=== PATIENT | female | born 1995 | race Two or more races ===

== ENCOUNTER 2025-05-30 13:41 | Emergency (ER) | payer MEDICAID, SELFPAY ==
[2025-05-30 09:54] VITALS: BP 128/75; PULSE 78
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
[2025-05-30 10:11] VITALS: BP 128/75; PULSE 79; RESP 100; RESP 16; TEMP 36.8; BMI 35.0
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
[2025-05-30 14:36] VITALS: BP 132/69; PULSE 79; RESP 18; TEMP 36.9; O2SAT 100
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
== END 2025-05-30 16:04 | disposition other institution (70) ==
LOC: SERX 14:56
PROVIDERS: Emergency Provider Emergency Medicine; PCP Nurse Practitioner Women's Health
DX: O26.892 Other specified pregnancy related conditions, second trimester (principal); V89.2XXA Person injured in unspecified motor-vehicle accident, traffic, initial encounter; Y92.410 Unspecified street and highway as the place of occurrence of the external cause; Z3A.22 22 weeks gestation of pregnancy; R10.32 Left lower quadrant pain; M54.9 Dorsalgia, unspecified
CPT/HCPCS: 76805; 99283

== ENCOUNTER 2025-08-07 08:42 | Observation (INO) | payer MEDICAID, SELFPAY ==
[2025-08-07] VITALS (8 sets, daily range): BP systolic 137; BP diastolic 83; PULSE 77–89; RESP 20–100; TEMP 36.8; O2SAT 99–100; BMI 37.3
== END 2025-08-07 09:42 | disposition home or self-care (01) ==
PROVIDERS: Admitting Provider Specialist; PCP Family Medicine; Visit Provider Specialist
DX: O26.893 Other specified pregnancy related conditions, third trimester (principal); R10.9 Unspecified abdominal pain; O99.613 Diseases of the digestive system complicating pregnancy, third trimester; K92.0 Hematemesis; Z3A.32 32 weeks gestation of pregnancy
CPT/HCPCS: 59025; 59899

== ENCOUNTER 2025-08-07 19:16 | Emergency (ER) | payer MEDICAID, SELFPAY ==
[2025-08-07 19:19] VITALS: BMI 36.9
[2025-08-07 20:03] VITALS: BP 130/75; PULSE 76; RESP 18; TEMP 36.8; O2SAT 100
--- NOTE | 2025-08-07 20:18 | PD.EDNV ---
Nausea/Vomit./Diarrhea-RME/HPI General Chief complaint: Abdominal Pain Stated complaint: ABD PAIN, N/V Time Seen by Provider: 08/07/25 19:25 Arrival date/time: 08/07/25 19:16 30-year-old female patient 5 para 2 2, about 32 weeks , came in for evaluation regarding vomiting. Earlier this morning patient's been vomiting, and was worried because of blood-tinged vomitus. Patient came here this morning and went to labor and delivery and was advised that the baby was okay. Patient came here because of worries about blood in the vomitus this morning. No more bloody vomitus noted in the afternoon. Patient was prescribed omeprazole by PCP. No diarrhea no constipation no vaginal bleeding or spotting. No dysuria. Related Data Home Medications ?Medication ?Instructions ?Recorded ?Confirmed prenat.vits,yolanda,[id number] 1 tab PO QDAY 03/06/21 08/07/25 aspirin 81 mg tablet,delayed 81 mg PO QDAY 05/30/25 08/07/25 release Previous Rx's ?Medication ?Instructions ?Recorded ondansetron HCl 4 mg tablet 4 mg PO Q8H PRN nausea and 08/07/25 vomiting 5 days #20 tabs Allergies Allergy/AdvReac Type Severity Reaction Status Date / Time No Known Allergies Allergy Verified 08/07/25 19:20 Review of Systems Review of Systems Narrative Review of Systems: Review of system reviewed and within normal limits except mentioned in HPI ED Exam Narrative Physical exam: VITAL SIGNS: Reviewed. GENERAL APPEARANCE: Alert and interactive, follows commands, no acute distress, HEAD AND FACE: Non-traumatic. ENT: PERRL, pink conjunctivitis, eyelid no trauma, Mucous membrane moist. NECK: Supple, nontender, no nuchal rigidity. CHEST: No tenderness, no crepitus, no paradoxical movement, no retractions. LUNGS: Clear, well ventilated, symmetric, no rales, no wheezing, no ronchi, no stridor, good breath sounds bilaterally. HEART: Regular rate, regular rhythm, no murmur, no gallops. ABDOMEN: Soft, positive bowel sounds, nondistended, no guarding, nontender, no rebound, no masses, RECTAL: Deferred. GENITAL: Deferred. NEUROLOGICAL: Gross motor function intact sensory function intact, Appropriate for age. MUSCULOSKELETAL: low back nontender, full range of motion. EXTREMITIES: Nontender, full range of motion. SKIN: Color pink, dry, no rash, no lacerations, no abrasions, no contusions. LYMPHATICS: Deferred. Course Quality Measures none Orders Category Date Time Status CBC [CBC] Stat Lab 08/07/25 20:34 Completed CMP [Comprehensive Metabolic Panel] Stat Lab 08/07/25 20:34 Completed Lipase Stat Lab 08/07/25 20:34 Completed UA, C/S IF [Urinalysis, C/S if Indicated] Stat Lab 08/07/25 20:30 Completed Ondansetron Odt [Zofran Odt] Med 08/07/25 20:17 Discontinued 4 mg PO X1 ONE Vital Signs Vital signs: Vital Signs Temperature 98.2 F 08/07/25 20:03 Pulse Rate 76 08/07/25 20:03 Respiratory Rate 18 08/07/25 20:03 Blood Pressure 130/75 08/07/25 20:03 Pulse Oximetry (%) 100 08/07/25 20:03 Oxygen Delivery Method Room Air 08/07/25 20:03 Nausea/Vomiting/Diarrhea MDM Narrative MDM Narrative:: 30-year-old female patient 5 para 2 2, about 32 weeks , came in for evaluation regarding vomiting. Earlier this morning patient's been vomiting, and was worried because of blood-tinged vomitus. Patient came here this morning and went to labor and delivery and was advised that the baby was okay. Patient came here because of worries about blood in the vomitus this morning. No more bloody vomitus noted in the afternoon. Patient was prescribed omeprazole by PCP. No diarrhea no constipation no vaginal bleeding or spotting. No dysuria. Patient CBC today came back unremarkable no anemia noted the rest of the labs normal urinalysis no UTI patient told me that there was no recurrence of blood-tinged vomitus in the ED. Patient was prescribed by her FLASH RANGING CREWMEMBER that saw her this morning with omeprazole. I sent her home on Zofran. She had no issues with her abdominal pain she had no vaginal bleeding or spotting I do not think the patient needs to go obstruction again she was seen and cleared in the labor and delivery earlier today. Patient data External records reviewed:: None Clinical information provided by:: patient Social determinants that could affect healthcare access:: none Patient has the following chronic illnesses:: None How is presenting disease/condition affected by chronic disease/condition?: no chronic disease Evaluation data The following diagnostics were reviewed and interpreted by me:: lab results Lab and/or radiology exams considered but not ordered:: None Interpretation Summary: See above Medications / Prescriptions Medications / Prescriptions considered but not ordered:: None Medication administrations:: Medication Administration History Discontinued Medications Ondansetron HCl (Ondansetron Odt 4 Mg Tabrap) 4 mg PO X1 ONE; Protocol Stop: 08/07/25 20:18 Last Admin: 08/07/25 21:19 Dose: 4 mg Documented By: MARYCARMEN Veronica Consultations Consultation(s) initiated? (list below): No Diagnosis Nausea Differential Diagnosis: gastroenteritis and dehydration Most likely diagnosis given after review of the tests above:: Nausea vomiting, Admission Indicated Admission indicated?: not indicated Admission Request Was there a request for admission?: No Disposition Plan Disposition Plan: Discharge Discharge Attestation Discharge Attestation: The patient was given an opportunity to ask questions and understood the discharge instructions. Discharge instructions specifically effects, indications for sooner follow up or return to the emergency department, and the expected course of current diagnosis. Patient condition: Stable Discharge Plan Plan Patient Disposition: HOME (Self Care) Discharge Disposition comment: Stable Prescriptions/Referrals Prescriptions/Med Rec: New ondansetron HCl 4 mg tablet 4 mg PO Q8H PRN (Reason: nausea and vomiting) 5 Days Qty: 20 0RF No Action prenat.vits,yolanda,[id number] Tablet 1 tab PO QDAY aspirin 81 mg tablet,delayed release (DR/EC) 81 mg PO QDAY Patient Comments: TAKE 1 TABLET BY MOUTH ONCE A DAY START AFTER 04/02/25 Referrals: Hector Yu MD [Primary Care Provider, Family Practice] - In 1 week Problem List Clinical Impression: Nausea & vomiting, and not yet delivered in third trimester Patient/Caregiver Discharge Instructions Discharge Activity: activity as tolerated Education Materials: ED Diet for Vomiting or ... Additional Instructions: Thank you for the opportunity for serving you today. You are stable for discharged . You are advised to: Follow-up with your FLASH RANGING CREWMEMBER in 1 to 2 days Return to ED for worsening of symptoms Increase oral fluids Take medication as prescribed Print Language: Mohawk Stand Alone Forms: Tawanna Award Info., Patient Portal Info Letter PA/DENTAL LABORATORY ASSISTANT Supervising Physician PA/DENTAL LABORATORY ASSISTANT Supervising Physician: mD Kathrin
[2025-08-07 20:42] LABS: Collection Type, Urine Clean Catch; RBC,Urine 0 /hpf (0-3)
[2025-08-07 20:56] LABS: Basophils # (Auto) 0.0 Thou/mm3 (0.0-0.2); Basophils % (Auto) 0 % (0-2.5); Eosinophils # (Auto) 0.0 Thou/mm3 (0.0-0.5); Eosinophils % (Auto) 0 % (0-10); Hematocrit 35.8 % (36.0-46.0); Hemoglobin 12.2 g/dL (12.0-16.0); Immature Granulocytes Auto 0.10 Thou/mm3 (0.00-0.00); Lymphocytes # (Auto) 1.5 Thou/mm3 (1.0-4.8); Lymphocytes % (Auto) 12 % (10-50); Mean Corpuscular HGB Conc 34.1 g/dl (31.0-37.0); Mean Corpuscular Hemoglobin 31.3 pg (25.0-35.0); Mean Corpuscular Volume 92 fL (80-100); Monocytes # (Auto) 0.9 Thou/mm3 (0.0-0.8); Monocytes % (Auto) 7 % (0-12); Neutrophils # (Auto) 10.4 Thou/mm3 (1.8-7.7); Neutrophils % (Auto) 80 % (37-80); Nucleated Red Blood Cell # 0.00 Thou/mm3 (0.00-0.00); Nucleated Red Blood Cell % 0 /100 WBC (0); Platelet Count 221 Thou/mm3 (140-440); RDW Standard Deviation 42.3 fL (36.4-46.3); Red Blood Count 3.90 Miln/mm3 (4.00-5.20); White Blood Count 13.0 Thou/mm3 (3.6-11.0)
[2025-08-07 21:01] LABS: Bacteria,Urine Rare; Bilirubin,Urine Negative (Negative); Blood,Urine Negative (Negative); Clarity,Urine Clear (Clear/Hazy); Color,Urine Lt-Yellow (Lt Yel-Yel); Culture Indicated,Urine Not Indicated; Glucose, Urine Negative (Negative); Ketones,Urine Negative (Negative); Leukocyte Esterase,Urine Negative (Negative); Nitrite,Urine Negative (Negative); PH,Urine 7.0 (5.0-7.0); Protein,Urine Negative (Neg - Trace); Specific Gravity,Urine 1.007 (1.001-1.035); Squamous Epithelial Cell,Urine 1 /hpf (0-5); Urobilinogen,Urine Negative mg/dL (0.0-1.0); WBC,Urine < 1 /hpf (0-5)
[2025-08-07 21:14] LABS: Alanine Aminotransferase 9 U/L (10-49); Albumin, Serum 4.2 gm/dL (3.5-5.0); Albumin/Globulin Ratio 1.3 (1.2-2.2); Alkaline Phosphatase 85 U/L (46-116); Anion Gap 11 (7-16); Aspartate Amino Transferase 20 U/L (0-34); BUN/Creatinine Ratio 8 Ratio (12-20); Bilirubin,Total 0.3 mg/dL (0.3-1.2); Blood Urea Nitrogen < 5 mg/dL (9-23); Calcium 8.9 mg/dL (8.3-10.6); Calcium (Corrected) 8.9 mg/dL (8.5-10.1); Carbon Dioxide 22.7 mMol/L (20.0-31.0); Chloride 107 mMol/L (98-107); Creatinine (Component) 0.6 mg/dL (0.6-1.3); Estimated Creatinine Clearance 185.8 mL/min (>60); Globulin 3.2 gm/dL (2.3-3.5); Glucose 90 mg/dL (74-106); Lipase 31 U/L (12-53); Osmolality,Calculated 278 (275-295); Potassium 4.1 mMol/L (3.4-5.1); Sodium 141 mMol/L (136-145); Total Protein 7.4 gm/dL (5.7-8.2); eGFR > 60 See Note
[2025-08-07] MEDS: ONDANSETRON ODT 4 MG TABRAP PO (21:19)
== END 2025-08-07 22:25 | disposition home or self-care (01) ==
PROVIDERS: Nurse Practitioner Family; Emergency Provider Emergency Medicine; PCP Family Medicine
DX: O21.2 Late vomiting of pregnancy (principal); Z3A.32 32 weeks gestation of pregnancy
CPT/HCPCS: 36415; 80053; 81001; 83690; 85025; 99282; Q0162